=== PATIENT | male | born 1985 | race Caucasian/White ===

== ENCOUNTER 2020-03-04 21:12 | Emergency (ER) | payer MEDICAID ==
[~2020-03-04] VITALS: Ht 177.8 cm; Wt 70.3 kg
[2020-03-04 21:17] VITALS: BP 119/83
--- NOTE | 2020-03-04 21:19 | NUR ---
biba to bed 12
--- NOTE | 2020-03-04 21:22 | NUR ---
34 YO M BIBA FOR C/C OF ALOC. PT WAS FOUND AT A [place] STATION, ALTERED. PT IS A&O X1. PT IS INCOMPREHENSIBLE, UNABLE TO ANSWER ANY QUESTIONS. BILATERAL PERRLA 3MM. VSS. PT PLACED ON FILM AND VIDEO EDITOR/PULSE OX. BED LOCKED AND IN LOWEST POSITION. SIDE RAILS X2. ALLERGIES UNOBTAINABLE MED HX UNOBTAINABLE RX UNOBTAINABLE
--- NOTE | 2020-03-04 22:00 | NUR ---
PT ASLEEP IN BED. EQUAL CHEST RISE AND FALL. CARDIAC MONTIOR/PULSE OX IN PLACE. PT STILL INCOHERENT.
--- NOTE | 2020-03-04 22:03 | NUR ---
ERMD AT BEDSIDE EVALUATING PT
--- NOTE | 2020-03-04 22:35 | NUR ---
pt attempted to pull out a knife during staright cath procedure. knife was taken by emt and placed in pt belonging bag and placed in nursing station. pt calm after prococedure was over.
--- NOTE | 2020-03-04 22:35 | NUR ---
# 14 FR Urinary catheter inserted utilizing sterile technique. Immediate return of 100 ml CLEAR YELLOW urine noted. Urine sample collected and sent to lab. Pt tolerated procedure poorly.
--- NOTE | 2020-03-04 22:45 | NUR ---
PT TAKEN TO CT VIA GURPREET
[2020-03-04 22:46] LABS: BASOPHILS # (AUTO) 0.1 K/uL (0.00-0.22); BASOPHILS % (AUTO) 1.3 % (0.0-2.0); EOSINOPHILS # (AUTO) 0.3 K/uL (0-0.4); EOSINOPHILS % (AUTO) 4.3 % (0.0-4.0); HEMATOCRIT 36.2 % (36-52); HEMOGLOBIN 11.8 g/dL (12.0-18.0); LYMPHOCYTES # (AUTO) 2.6 K/uL (2.0-11.5); LYMPHOCYTES % (AUTO) 40.1 % (20.5-51.1); MEAN CORPUSCULAR HEMOGLOBIN 30 pg (27-31); MEAN CORPUSCULAR HGB CONC 33 g/dL (33-37); MEAN CORPUSCULAR VOLUME 90.7 fL (80-94); MONOCYTES # (AUTO) 0.7 K/uL (0.8-1.0); MONOCYTES % (AUTO) 11.1 % (1.7-9.3); NEUTROPHILS # (AUTO) 2.8 K/uL (1.8-7.7); NEUTROPHILS % (AUTO) 43.2 % (42.2-75.2); PLATELET COUNT (AUTO) 386 K/uL (140-450); RED CELL DISTRIBUTION WIDTH 15.8 % (11.6-13.7); WHITE BLOOD COUNT (AUTO) 6.4 K/uL (4.8-10.8)
[2020-03-04 22:52] LABS: APPEARANCE,URINE CLEAR (CLEAR); BILIRUBIN,URINE NEGATIVE (NEGATIVE); BLOOD, URINE NEGATIVE (NEGATIVE); COLOR,URINE YELLOW (YELLOW); LEUKOCYTE ESTERASE ,URINE NEGATIVE (NEGATIVE); NITRITE, URINE NEGATIVE (NEGATIVE); PH,URINE 5.5 (5.0-9.0); UGLUCOSE NEGATIVE (NEGATIVE)
--- NOTE | 2020-03-04 23:04 | NUR ---
PT RETURNED FROM CT VIA GURNEY AND PLACED ON FORMULA CHECKER.
[2020-03-04 23:06] LABS: ALBUMIN 3.4 g/dL (3.4-5.0); ANION GAP 12.1 (8-16); ASPARTATE AMINOTRANSFERASE 66 U/L (15-37); CARBON DIOXIDE 28.3 mmol/L (21-32); CHLORIDE 102 mmol/L (98-107); CREATININE 0.9 mg/dL (0.6-1.3); GFR ARICAN-AMERICAN 123 mL/min (>90); GLUCOSE 93 mg/dL (74-106); POTASSIUM 3.4 mmol/L (3.5-5.1); SODIUM SERUM 139 mmol/L (136-145); TOTAL BILIRUBIN 0.4 mg/dL (0.0-1.0); UREA NITROGEN, BLOOD 8 mg/dL (7-18)
[2020-03-04 23:07] LABS: BARBITURATE, URINE NEGATIVE ng/ml (NEG <=200); BENZODIAZEPINE, URINE POSITIVE ng/mL (NEG <=200); COCAINE, URINE NEGATIVE ng/mL (NEG <=300)
[2020-03-04 23:08] LABS: CANNABINOID, URINE POSITIVE ng/mL (NEG <=50); OPIATE, URINE NEGATIVE ng/mL (NEG <=2000); PHENCYCLIDINE SCREEN,URINE NEGATIVE ng/mL (NEG <=25)
[2020-03-04 23:08] LABS: ACETAMINOPHEN < 0.5 ug/ml (10-30); SALICYLATE < 2.8 mg/dL (2.8-20.0)
--- NOTE | 2020-03-05 | NUR ---
PT ASLEEP. NON AROUSABLE TO VERBAL STIMULATION. RESPIRATIONS EVEN AND UNLABORED. MUSIC JOURNALIST/PULSE OX IN PLACE. BED LOCKED AND IN LOWEST POSITION. SIDE RAILS X2.
--- NOTE | 2020-03-05 02:00 | NUR ---
PT ASLEEP. NON AROUSABLE TO VERBAL STIMULATION. RESPIRATIONS EVEN AND UNLABORED. SLUBBER TENDER/PULSE OX IN PLACE. BED LOCKED AND IN LOWEST POSITION. SIDE RAILS X2.
--- NOTE | 2020-03-05 04:00 | NUR ---
PT ASLEEP. NON AROUSABLE TO VERBAL STIMULATION. RESPIRATIONS EVEN AND UNLABORED. CERTIFIED NOVELL ENGINEER/PULSE OX IN PLACE. BED LOCKED AND IN LOWEST POSITION. SIDE RAILS X2.
--- NOTE | 2020-03-05 05:00 | NUR ---
PT AWAKE AND ANSWERING QUESTIONS APPROPRIATELY. PT ASKING TO BE D/C FROM ER. KELLID MADE AWARE
[2020-03-05 05:15] VITALS: BP 100/75
--- NOTE | 2020-03-05 05:15 | NUR ---
Patient discharged with v/s stable. Written and verbal after care instructions given and explained. Patient verbalized understanding. Ambulatory with steady gait. All questions addressed prior to discharge. Advised to follow up with PMD. PT PROVIDED WITH BUS PASS AND SANDJDICH/BIRDIE.
== END 2020-03-05 05:15 | disposition home or self-care (01) ==
LOC: MED 21:12
DX: R41.82 Altered mental status, unspecified (principal)
CPT/HCPCS: 36415; 70450; 80053; 80305; 81003; 82140; 85025; 99284; C1758; G0480; G0482